=== PATIENT | female | born 1995 | race Caucasian/White ===

== ENCOUNTER 2022-11-14 18:29 | Inpatient (IN) ==
[2022-11-14 20:41] LABS: ABS Basophils 0.1 10^3/uL (0.0-0.1); ABS Eosinophils 0.2 10^3/uL (0.0-0.5); ABS Lymphocytes 2.6 10^3/uL (1.0-4.8); ABS Monocytes 1.1 10^3/uL (0.0-0.9); ABS Neutrophils 11.1 10^3/uL (1.5-7.6); ABS Nucleated RBC 0.02 10^3/ul; Eosinophil % 1.2 %; Hematocrit 39.1 % (35-45); Hemoglobin 13.7 g/dL (11.5-14.3); Lymphocyte % 16.9 %; Mean Corpuscular Hemoglobin 34.1 pg (27-33); Mean Corpuscular Volume 97.4 fL (80-97); Mean Platelet Volume 8.9 fL (7.5-11.2); Nucleated Red Blood Cells % 0.1 /100 WBC (0.0-0.4); Platelet Count 324 10^3/uL (150-450); Red Blood Count 4.01 10^6/uL (3.63-4.92); White Blood Count 15.1 10^3/uL (3.8-11.8)
[2022-11-14 20:57] LABS: Albumin 3.9 g/dL (3.2-5.2); Anion Gap 7 mmol/L (2-16); CO2 Carbon Dioxide 27 mmol/L (22-32); Calcium 8.8 mg/dL (8.6-10.3); Chloride 105 mmol/L (101-111); Potassium 3.9 mmol/L (3.5-5.0); Sodium 139 mmol/L (135-145)
[2022-11-14 21:03] LABS: ALT 21 U/L (7-52); AST 20 U/L (13-39); Albumin/Globulin Ratio 1.3 (1-3); Alkaline Phosphatase 114 U/L (35-149); Blood Urea Nitrogen 16 mg/dL (6-24); Creatinine, Serum 0.75 mg/dL (0.51-0.95); Glucose 95 mg/dL (70-100); HCG Pregnancy < 0.60 mIU/mL; Total Protein 6.9 g/dL (6.4-8.9); eGFR CKD-EPI 110.5 (>60)
[2022-11-14] MEDS ORDERED: Heparin 5000 UNITS/ML 1 mL VIAL SUBCUT ONE (21:05)
[2022-11-15 07:47] LABS: Activated Partial Thrombo Time 32.9 seconds (26.0-38.0); INR 0.99 (0.83-1.13)
[2022-11-15] MEDS ORDERED: ceFAZolin 2 GM in NS PREMIX 2 GM/100 ML BAG IVPB ONE (12:04)
[2022-11-15] MEDS ORDERED: Propofol 10 MG/ML 20 ML BTL ONE (12:26)
[2022-11-15] MEDS ORDERED: Midazolam 2 mg/2 ml VIAL 1 mg/ml 2 ml VIAL (2 mg) ONE (12:26)
[2022-11-15] MEDS ORDERED: Propofol 10 MG/ML 20 ML BTL IV ONE (13:18)
[2022-11-15] MEDS ORDERED: Midazolam 2 mg/2 ml VIAL 1 mg/ml 2 ml VIAL (2 mg) IV SLOW PU ONE (13:18)
[2022-11-15] MEDS ORDERED: fentaNYL 100 mcg/2 ml 50 MCG/ML VIAL IV ONE ×2 (13:33→16:12)
[2022-11-15] MEDS ORDERED: Naloxone 0.4 mg VIAL 0.4 mg/ml 1 ml VIAL IV PRN (13:47)
[2022-11-15] MEDS ORDERED: Ondansetron 4 mg VIAL 2 MG/ML 2 ml VIAL IV PRN ×2 (13:47→15:29)
[2022-11-15] MEDS ORDERED: fentaNYL 250 mcg/5 ml 50 MCG/ML 5 ml VIAL (250 MCG) ONE (13:48)
[2022-11-15] MEDS ORDERED: Acetaminophen IV 1 GM/100ML 1,000 MG/100 ML BAG IV ONE (13:49)
[2022-11-15] MEDS ORDERED: Dexamethasone IV 4 MG/ML VIAL 1 ml VIAL ONE (13:57)
[2022-11-15] MEDS ORDERED: Ondansetron 4 mg VIAL 2 MG/ML 2 ml VIAL ONE ×2 (13:57→15:51)
[2022-11-15] MEDS ORDERED: Dexmedetomidine 200 mcg/2 ml 2 ml VIAL (200 mcg) ONE (13:57)
[2022-11-15] MEDS ORDERED: Metoprolol Tartrate 5 mg VIAL 5 ml VIAL (1 mg/ml) ONE (14:40)
[2022-11-15] MEDS ORDERED: Magnesium Hydroxide LIQ 30 ML UDC PO PRN (15:29)
[2022-11-15] MEDS ORDERED: Senna TAB 8.6 mg TAB PO PRN (15:29)
[2022-11-15] MEDS ORDERED: Polyethylene Glycol 3350 17 GM PACKET PO PRN (15:29)
[2022-11-15] MEDS ORDERED: Morphine 2 MG/ML SYRINGE IV PRN (15:29)
[2022-11-15] MEDS ORDERED: Lactated Ringers 1000 ml BAG 1,000 ML IV ONE (15:35)
[2022-11-15] MEDS ORDERED: fentaNYL 100 mcg/2 ml 50 MCG/ML VIAL ONE (15:50)
[2022-11-15] MEDS: fentaNYL 100 mcg/2 ml 50 MCG/ML VIAL IV PRN ×3 (15:52→16:12)
[2022-11-15] MEDS ORDERED: Enoxaparin 40 MG/0.4 ML SYR SUBCUT SCH (16:00)
[2022-11-15] MEDS: ceFAZolin 1 GM ADVAN 1 GM in NS 0.9% 50 ML 50 ML IVPB SCH (22:18)
[2022-11-15] MEDS: Magnesium Hydroxide LIQ 30 ML UDC PO SCH (22:26)
[2022-11-16] MEDS: ceFAZolin 1 GM ADVAN 1 GM in NS 0.9% 50 ML 50 ML IVPB SCH ×2 (06:01→14:03)
[2022-11-16 06:29] LABS: Hematocrit 36.3 % (35-45); Hemoglobin 12.4 g/dL (11.5-14.3); Mean Platelet Volume 9.2 fL (7.5-11.2); Platelet Count 298 10^3/uL (150-450)
[2022-11-16 06:47] LABS: Calcium 8.4 mg/dL (8.6-10.3); Creatinine, Serum 0.72 mg/dL (0.51-0.95); Potassium 3.8 mmol/L (3.5-5.0)
[2022-11-16 08:13] LABS: Urine Benzodiazepine Screen Presumptive Positive (None Detect); Urine Cannabinoids Screen None Detected (None Detect); Urine Opiates Screen None Detected (None Detect)
[2022-11-16] MEDS: Magnesium Hydroxide LIQ 30 ML UDC PO SCH ×2 (09:02→21:35)
[2022-11-16] MEDS: Enoxaparin 40 MG/0.4 ML SYR SUBCUT SCH (12:30)
[2022-11-17 06:20] LABS: Hemoglobin 11.2 g/dL (11.5-14.3); Mean Corpuscular Hemoglobin 33.7 pg (27-33); Mean Corpuscular Volume 99.1 fL (80-97); Mean Platelet Volume 9.4 fL (7.5-11.2); Platelet Count 248 10^3/uL (150-450); Red Blood Count 3.33 10^6/uL (3.63-4.92); Red Cell Distribution Width 14.7 % (12-17); White Blood Count 22.6 10^3/uL (3.8-11.8)
[2022-11-17 06:37] LABS: Calcium 8.2 mg/dL (8.6-10.3); Creatinine, Serum 0.74 mg/dL (0.51-0.95); Potassium 4.4 mmol/L (3.5-5.0); eGFR CKD-EPI 112.2 (>60)
[2022-11-17] MEDS: Magnesium Hydroxide LIQ 30 ML UDC PO SCH ×2 (07:13→21:17)
[2022-11-17 08:36] LABS: ABS Basophils 0.1 10^3/uL (0.0-0.1); ABS Eosinophils 0.1 10^3/uL (0.0-0.5); ABS Lymphocytes 1.8 10^3/uL (1.0-4.8); ABS Monocytes 0.5 10^3/uL (0.0-0.9); ABS Neutrophils 20.1 10^3/uL (1.5-7.6); ABS Nucleated RBC 0.01 10^3/ul; Eosinophil % 0.6 %; Lymphocyte % 7.8 %
[2022-11-17 09:57] LABS: C Reactive Protein 157.92 mg/L (<8.01)
[2022-11-17 10:46] LABS: Ferritin 156.6 ng/mL (11-307)
[2022-11-17] MEDS: Enoxaparin 40 MG/0.4 ML SYR SUBCUT SCH (11:03)
[2022-11-17 14:12] LABS: Phosphorus 3.4 mg/dL (2.5-5.0)
[2022-11-17 15:40] LABS: Rapid Strep Molecular Negative (Negative)
[2022-11-17 16:42] LABS: TSH Ultra Thyroid Stim Horm 3.56 mcIU/mL (0.34-5.60)
[2022-11-18 05:28] LABS: ABS Basophils 0.1 10^3/uL (0.0-0.1); ABS Eosinophils 0.3 10^3/uL (0.0-0.5); ABS Lymphocytes 3.2 10^3/uL (1.0-4.8); ABS Monocytes 0.7 10^3/uL (0.0-0.9); ABS Neutrophils 6.8 10^3/uL (1.5-7.6); ABS Nucleated RBC 0.01 10^3/ul; Eosinophil % 2.4 %; Hematocrit 31.7 % (35-45); Hemoglobin 11.1 g/dL (11.5-14.3); Lymphocyte % 29.3 %; Mean Corpuscular Hemoglobin 34.5 pg (27-33); Mean Corpuscular Hgb Conc 35.1 g/dL (31-36); Mean Corpuscular Volume 98.4 fL (80-97); Platelet Count 233 10^3/uL (150-450); Red Blood Count 3.22 10^6/uL (3.63-4.92); Red Cell Distribution Width 14.7 % (12-17)
[2022-11-18 05:55] LABS: Calcium 8.2 mg/dL (8.6-10.3); Creatinine, Serum 0.78 mg/dL (0.51-0.95); Potassium 4.2 mmol/L (3.5-5.0); eGFR CKD-EPI 105.4 (>60)
[2022-11-18] MEDS: Magnesium Hydroxide LIQ 30 ML UDC PO SCH (08:32)
[2022-11-18 09:51] VITALS: BP 126/87
[2022-11-18] MEDS: Enoxaparin 40 MG/0.4 ML SYR SUBCUT SCH (12:04)
[2022-11-20 12:16] LABS: Chlamydia trachomatis NAA Negative (Negative); Neisseria gonorrhoeae (GC) NAA Negative (Negative)
== END 2022-11-18 14:45 | disposition home or self-care (01) | DRG 482 ==
LOC: ED 18:29 → EDHOLD 21:00 → SUATTDRO 21:00 → EDHOLD 11-15 09:35 → AA 11-15 11:51 → SSU 11-15 17:12
PROVIDERS: ADMIT Hospitalist; ATTEND Internal Medicine